=== PATIENT | female | born 1975 | race Caucasian/White ===

== ENCOUNTER 2018-02-05 06:50 | Emergency (ER) | END 2018-02-05 12:45 | disposition home or self-care (01) ==

== ENCOUNTER 2018-03-10 12:40 | Emergency (ER) | END 2018-03-10 16:32 | disposition home or self-care (01) ==

== ENCOUNTER 2019-05-11 08:52 | Emergency (ER) | payer OTHER ==
[~2019-05-11] VITALS: Ht 167.6 cm; Wt 105.8 kg
[~2019-05-11 08:52] MED LIST: ALLO300T2 PO; AMLO-147 PO; ASPI-465 PO; ASPI-817 PO; CYCL10TA7 PO; DULA1.5P SQ; EPIN0.3P4 IM; HYDR-762 PO; HYDR25TA6 PO; IBUP-1542 PO; INSU100I12 SQ; INSU100I33 SC; LEVA15HF6 INH; LOSA100T15 PO; METF-849 PO; METF100010 PO; MONT10TA24 PO; NITR0.4T32 SL; ONDA4TAB8 PO; PRAV40TA76 PO
[2019-05-11 09:00] VITALS: Ht 167.6 cm; Wt 105.8 kg
--- NOTE | 2019-05-11 10:46 | ERD ---
ER Documentation Chief Complaint Chief Complaint right flank pain, feels weak, vomitting since yesterday HPI 43-year-old female presents the emergency department complaining of her right flank pain. Patient states that beginning yesterday she began having a right flank pain. The pain does not radiate. It was associated with no fevers or chills but she had some mild nausea and generalized weakness associated with the discomfort. Patient's pain was described as mild to moderate. The pain does not radiate was associated with no trauma. She has never had similar type pain. She reported no gynecologic symptoms. She reported no hematuria. ROS All systems reviewed and are negative except as per history of present illness. Medications Home Meds Active Scripts Ibuprofen* (Motrin*) 600 Mg Tab, 600 MG PO Q6H PRN for PAIN AND OR ELEVATED TEMP, #30 TAB Prov:CHAPIN MCCORMACK 05/11/19 Reported Medications Dulaglutide (Trulicity) 1.5 Mg/0.5 Ml Pen.injctr, 1.5 MG SQ Q7D 05/11/19 Losartan Potassium* (Losartan Potassium*) 100 Mg Tablet, 100 MG PO DAILY, TAB 05/11/19 Pravastatin Sodium* (Pravastatin Sodium*) 40 Mg Tablet, 40 MG PO HS, TAB 05/11/19 Aspirin* (Aspirin* EC) 81 Mg Tablet.dr, 81 MG PO DAILY, TAB 05/11/19 Amlodipine Besylate* (Amlodipine Besylate*) 10 Mg Tablet, 10 MG PO DAILY, #30 TAB 05/11/19 Insulin Glargine,Hum.rec.anlog (Basaglar Kwikpen U-100) 100 Unit/1 Ml Insuln.pen, 45 UNIT SC QHS, EA 05/11/19 Montelukast Sodium* (Montelukast Sodium*) 10 Mg Tablet, 10 MG PO QHS, #30 TAB 05/11/19 Allopurinol* (Allopurinol*) 300 Mg Tablet, 300 MG PO DAILY, TAB 05/11/19 Metformin Hcl* (Metformin Hcl*) 1,000 Mg Tablet, 1000 MG PO WITH BREAKFAST DINNE, #60 TAB 05/11/19 Insulin Lispro (Humalog Kwikpen U-100) 100 Unit/1 Ml Insuln.pen, 15 UNIT SQ WITH MEALS, EA 05/11/19 Discontinued Reported Medications Cyclobenzaprine Hcl* (Cyclobenzaprine Hcl*) 10 Mg Tablet, 10 MG PO TID PRN for MUSCLE SPASMS, TAB 06/04/15 Hydrochlorothiazide* (Hydrochlorothiazide*) 25 Mg Tab, 25 MG PO DAILY, TAB 06/04/15 Losartan Potassium* (Losartan Potassium*) 100 Mg Tablet, 100 MG PO DAILY, TAB 06/04/15 Amlodipine Besylate* (Amlodipine Besylate*) 10 Mg Tablet, 10 MG PO DAILY, TAB 06/04/15 Nitroglycerin* (Nitroglycerin* SL) 0.4 Mg Tab.subl, 0.4 MG SL Q5MIN PRN for CHEST PAIN, BOTTLE 06/04/15 Aspirin (Adult Low Dose Aspirin) 81 Mg Tablet.dr, 81 MG PO DAILY 10/08/10 Discontinued Scripts Ondansetron Hcl* (Zofran*) 4 Mg Tablet, 4 MG PO Q6H for NAUSEA AND/OR VOMITING, #30 TAB Prov:VIANEY SYED PA-C 03/10/18 Levalbuterol* (Xopenex* HFA) 15 Gm Inha, 2 PUFFS INH Q4H PRN for WHEEZING AND SOB, #1 VIAL Prov:KHALIF STOVER. 07/07/15 Epinephrine (Epipen 2-Pedro) 0.3 Mg/0.3 Ml Pen.injctr, 0.3 MG IM DIRECTED PRN for ALLERGIC REACTION, #1 EA Prov:KHALIF STOVER M. 07/07/15 Metformin* (Glucophage*) 500 Mg Tab, 1000 MG PO BID for 30 Days, TAB Prov:KHALIF STOVER. 07/07/15 Hydrocodone Bit-Acetaminophen* (Manning*) 10-325 Mg Tablet, 1 TAB PO Q6 PRN for PAIN for 4 Days, TAB Prov:MASTER MCKENNA MD 06/04/15 Allergies Allergies: Coded Allergies: crab (Verified Allergy, Severe, 05/11/19) ciprofloxacin (Verified Allergy, Intermediate, 05/11/19) Cephalexin Monohydrate (Verified Allergy, Mild, 05/11/19) Penicillins (Verified Allergy, Mild, 05/11/19) Uncoded Allergies: CRAB (Allergy, Severe, ANAPHYLAXIS, 05/19/13) CIPRO (Allergy, Intermediate, 07/04/13) REDNESS,RASH, ITCHING PMhx/Soc History of Surgery: Yes (C.SECTION X3, RIGHT KIDNEY STOME REMOVAL W/ JJ STENT PLACEMENT X2) Anesthesia Reaction: No Hx Neurological Disorder: No Hx Respiratory Disorders: No Hx Cardiac Disorders: No Hx Psychiatric Problems: No Hx Miscellaneous Medical Probl: Yes (HIGH CHOLESTEROL, VERTIGO, DM) Hx Alcohol Use: No Hx Substance Use: No Hx Tobacco Use: No Smoking Status: Never smoker FmHx Noncontributory for chief complaint Physical Exam Vitals Vital Signs Date Temp Pulse Resp B/P (MAP) Pulse Ox O2 O2 Flow FiO2 Time Delivery Rate 05/11/19 97.0 80 26 138/76 98 09:00 (96) Physical Exam GENERAL: The patient is well developed and appropriate for usual state of health in no apparent distress HEENT: Pupils equal, round, and reactive to light. EOMI. There is no scleral icterus. NECK: C-spine is soft and supple, there is no meningismus. There is no cervical lymphadenopathy. LUNGS: Clear to auscultation bilaterally. There are no rales, wheezes or rhonchi. HEART: Regular rate and rhythm, no murmurs, clicks, rubs or gallops. ABDOMEN: Soft, non-tender, non-distended. There are bowel sounds in all four quadrants. No rebound or guarding. No CVA tenderness EXTREMITIES: There is no peripheral cyanosis or edema. No focal swelling or erythema. NEURO: The patient moves all four extremities with 5/5 strength. Cranial nerves II - XII are intact. Normal gait. Alert and oriented SKIN: There is no apparent rash or petechiae. HEME/LYMPHATIC: There is no evidence of excessive bruising or lymphedema. PSYCHIATRIC: The patient does not appear anxious or depressed. Result Diagram: 05/11/1992205/11/19922 Results 24 hrs Laboratory Tests Test 05/11/19 09:23 05/11/19 09:30 05/11/19 09:52 White Blood Count 8.1 10^3/ul Red Blood Count 4.81 10^6/ul Hemoglobin 12.9 g/dl Hematocrit 40.1 % Mean Corpuscular Volume 83.4 fl Mean Corpuscular Hemoglobin 26.8 pg Mean Corpuscular 32.2 g/dl Hemoglobin Concent Red Cell Distribution Width 14.6 % Platelet Count 252 10^3/UL Mean Platelet Volume 9.3 fl Immature Granulocytes % 0.600 % Neutrophils % 70.3 % Lymphocytes % 19.7 % Monocytes % 6.9 % Eosinophils % 2.0 % Basophils % 0.5 % Nucleated Red Blood Cells % 0.0 /100WBC Immature Granulocytes # 0.050 10^3/ul Neutrophils # 5.7 10^3/ul Lymphocytes # 1.6 10^3/ul Monocytes # 0.6 10^3/ul Eosinophils # 0.2 10^3/ul Basophils # 0.0 10^3/ul Nucleated Red Blood Cells # 0.0 10^3/ul Sodium Level 137 mmol/L Potassium Level 3.7 mmol/L Chloride Level 99 mmol/L Carbon Dioxide Level 27 mmol/L Anion Gap 11 Blood Urea Nitrogen 14 mg/dl Creatinine 0.99 mg/dl Est Glomerular Filtrat > 60 mL/min Rate mL/min Glucose Level 277 mg/dl Calcium Level 9.7 mg/dl Total Bilirubin 0.6 mg/dl Direct Bilirubin 0.00 mg/dl Indirect Bilirubin 0.6 mg/dl Aspartate Amino 24 IU/L Transf (AST/SGOT) Alanine 23 IU/L Aminotransferase (ALT/SGPT) Alkaline Phosphatase 55 IU/L Total Protein 8.0 g/dl Albumin 4.2 g/dl Globulin 3.80 g/dl Albumin/Globulin Ratio 1.10 Lipase 73 U/L Urine Color YELLOW Urine Clarity SLIGHTLY CLOUDY Urine pH 5.0 Urine Specific [place] 1.009 Urine Ketones NEGATIVE mg/dL Urine Nitrite NEGATIVE mg/dL Urine Bilirubin NEGATIVE mg/dL Urine Urobilinogen NEGATIVE mg/dL Urine Leukocyte Esterase NEGATIVE Jag/ul Urine Microscopic RBC 2 /HPF Urine Microscopic WBC 3 /HPF Urine Squamous Epithelial Cells MODERATE /HPF Urine Bacteria FEW /HPF Urine Mucus FEW /HPF Urine Hemoglobin NEGATIVE mg/dL Urine Glucose 3+ mg/dL Urine Total Protein NEGATIVE mg/dl POC Beta HCG, Qualitative NEGATIVE Procedures/MDM Patient was taken to a room, seen and evaluated. Comfort measures were initiated. Diagnostic tests were ordered and reviewed. 3 LEAD RHYTHM STRIP: Normal sinus rhythm without ectopy RADIOLOGY: Reviewed with the radiologist REEVALUATION: 1040: Diagnostic tests were appreciated and discussed with the patient. Serial examinations of the patient showed that she remained well- appearing with no significant abdominal tenderness or other concerns. MEDICAL DECISION MAKIN-year-old female presents the emergency department with flank pain of uncertain etiology. Diagnostic evaluation focused on kidney concerns including urinary tract infections, kidney stones and also included a work-up for gallstones and other issues. At this time, patient has no high risk findings on ultrasound. Patient's urinalysis initially negative for urinary t ract infection with a urine culture pending. Patient appears to be nontoxic with no other high-risk concerns noted on exam or imaging or labs and now seems to be appropriate for discharge. Departure Diagnosis: Primary Impression: Flank pain Condition: Stable Patient Instructions: Flank Pain, Uncertain Cause Additional Instructions: See your doctor for follow-up as discussed. Take a copy of your test results, if appropriate, to this follow-up visit. See your doctor or return here if your symptoms do not improve as expected. Return here immediately for any worsening pain, fevers or other concerns. At any time, please return to the emergency department for any change or worsening in her symptoms. CHAPIN MCCORMACK May 11, 2019 10:46
[2019-05-11 11:25] VITALS: BP 126/74; PULSE 68; RESP 26
== END 2019-05-11 11:27 | disposition home or self-care (01) ==
LOC: E/R 08:52
DX: R10.9 Unspecified abdominal pain (principal); E11.9 Type 2 diabetes mellitus without complications; Z79.82 Long term (current) use of aspirin; Z79.4 Long term (current) use of insulin
CPT/HCPCS: 36415; 76705; 80053; 81001; 81025; 83690; 85025; 87086; Z7502; 81003